=== PATIENT | female | born 1940 | race Caucasian/White ===

== ENCOUNTER → 2024-12-08 | Outpatient (REF) | payer MEDICARE, SELFPAY ==
[2024-12-08 08:47] LABS: Hematocrit 25.1 % (37-47); Hemoglobin 7.7 g/dL (12.0-15.0)
== END ==
LOC: OLS.SANC 05:00
DX: E11.9 Type 2 diabetes mellitus without complications (principal); D64.9 Anemia, unspecified
CPT/HCPCS: 36415; 85014; 85018

== ENCOUNTER → 2024-12-10 | Outpatient (REF) | payer MEDICARE, SELFPAY ==
--- OUTSIDE RECORDS SUMMARY | 2024-12-10 04:28 | XMS RPT_ITS | CCD ---
Author Organization [facility] Care Team Providers Care Sheet Rocker Name Role Phone Ashu Suarezfreddy Attending Unavail able Results Test Name Value Interpretation Reference Range Facil ity HH, Hemoglobin AND Hematocri ton 12-08-2024 Hematocrit (Bld) [Volume fraction] 25.1 % Low 37-47 [facility] Comment on above: Order Comment: 407-2 Performed By: #### L [id number] #### [facility] [address] [place], [place], [address] Hemoglobin (Bld) [Mass/Vol] 7.7 g/dL Low 12.0-15.0 [facility] Comment on above: Order Comment: 407-2 Performed By: #### L [id number] #### [facility] [address] [place], [address] Encounters Encounter Date Encounter Type Care Provider Facility Start: 12-08-2024 ambulatory Jeannine BROWNING Facility:[facility] Payers Date Payer Category Payer Self-pay Summary Purpose Family History No Family History Records Found Advance Directives No Advanced Directives Records Found Additional Source Comments INFORMATION SOURCE (unrecogn ized section and content) DATE CREATED AUTHOR 12/09/2024 [facility] FOR RECORDS PERTAINING TO PATIENTS WHO ARE OR HAVE BEEN ENROLLED IN A CHEMICAL DEPENDENCY/SUBSTANCEABUSE PROGRAM, SOME INFORMATION MAY BE OMITTED. This clinical summary was aggregated from multiple sources. Caution should be exercised in using it in the provision of clinical care. This summary normalizes information from multiple sources, and as a consequence, information in this document may materially change the coding, format and clinical context of patient data. In addition, data may be omitted in some cases. CLINICAL DECISIONS SHOULD BE BASED ON THE PRIMARY CLINICAL RECORDS. [email or web address] provides no warranty or guarantee of the accuracy or completeness of information in this document.
[2024-12-10 08:08] LABS: Hematocrit 25.8 % (37-47); Hemoglobin 7.9 g/dL (12.0-15.0); Mean Corp Hgb Conc 30.6 g/dL (32-36); Mean Corpuscular Volume 83.2 fL (81-99); Mean Platelet Vol. 9.6 fl (6.2-12.0); POSITIVE MORPHOLOGY YES; Platelet Count 299 K/mm3 (150-450); RBC Distribution Width CV 26.3 % (11.6-14.6); RBC Distribution Width SD 76.2 fl (35.1-43.9); Red Blood Count 3.10 M/mm3 (4.2-5.4); White Blood Count 7.1 K/mm3 (4.4-11.0)
[2024-12-10 08:13] LABS: Scan Indicated on CBC? Y/N YES- FLAGS NOTED
== END ==
LOC: OLS.SANC 05:00
PROVIDERS: Visit Provider Internal Medicine
DX: I50.9 Heart failure, unspecified (principal); E11.9 Type 2 diabetes mellitus without complications; E83.42 Hypomagnesemia
CPT/HCPCS: 36415; 85027

== ENCOUNTER → 2024-12-11 | Outpatient (REF) | payer MEDICARE, SELFPAY ==
[2024-12-11 09:20] LABS: Hematocrit 29.4 % (37-47); Hemoglobin 8.9 g/dL (12.0-15.0); Mean Corp Hgb Conc 30.3 g/dL (32-36); Mean Corpuscular Volume 84.2 fL (81-99); Mean Platelet Vol. 9.8 fl (6.2-12.0); POSITIVE MORPHOLOGY YES; Platelet Count 337 K/mm3 (150-450); RBC Distribution Width CV 26.7 % (11.6-14.6); RBC Distribution Width SD 78.3 fl (35.1-43.9); Red Blood Count 3.49 M/mm3 (4.2-5.4); White Blood Count 8.3 K/mm3 (4.4-11.0)
[2024-12-11 09:34] LABS: Anion Gap 11 (5-15); BUN 24 mg/dL (4-19); BUN/Creat Ratio 17.7 RATIO (10-20); Calcium,Total 9.2 mg/dL (7.6-11.0); Carbon Dioxide 27.3 mmol/L (21.0-32.0); Chloride 93 mmol/L (98-108); Glucose 123 mg/dL (70-99); Potassium 3.8 mmol/L (3.3-5.1)
[2024-12-11 10:22] LABS: Scan Indicated on CBC? Y/N YES- FLAGS NOTED
== END ==
LOC: OLS.SANC 05:00
DX: I50.42 Chronic combined systolic (congestive) and diastolic (congestive) heart failure (principal); I25.10 Atherosclerotic heart disease of native coronary artery without angina pectoris; E11.9 Type 2 diabetes mellitus without complications
CPT/HCPCS: 36415; 80048; 85027